=== PATIENT | female | born 1995 | race Caucasian/White ===

== ENCOUNTER 2024-02-29 08:48 | Emergency (ER) | payer OTHER, SELFPAY ==
[2024-02-29 08:54] VITALS: BP 123/72
[2024-02-29 09:49] VITALS: BMI 26.2
--- NOTE | 2024-02-29 10:07 | ED.GENMED ---
History of Present Illness
General
Chief Complaint: Back Pain
Source: patient
Exam Limitations: none
Time Seen by Provider: 02/29/24 09:56
History of Present Illness
History of Present Illness:
29-year-old female presents with several days worth of worsening left flank pain. The pain is made worse with motion and laying flat. She also notes increase with deep breathing. No recent travel or surgery. She denies any leg swelling or calf
pain. No fever or cough. No urinary symptoms. She tried pain medication and muscle relaxer at home without relief.
Past History
Past History
ED Past Medical History: Asthma and Other (migraines, brain tumor)
ED Past Surgical History: Tonsilectomy and Other (Myringotomy tubes, 'brain tumor' removal)
Social History
Tobacco: Non-smoker
Alcohol: Occasional
Drug: None
Personal: Single
Living: with family
Employment: Student
Family History
Family History: Negative Early CAD
Phy Exam
Physical Exam
Physical Exam:
General: Well-appearing female no acute respiratory distress
HEENT: Normocephalic atraumatic
Heart: Regular rate and rhythm no murmurs lungs: Clear no wheeze
Abdomen: Soft tender to the left flank and lower left posterior lateral chest. No step-off or deformity. No rash. No overlying ecchymosis slight tenderness to the lower left abdomen as well
Extremities: No cyanosis or edema
Course
Orders/Labs/Results
Orders:
Orders
02/29/24 10:00
UA Reflex to Culture [Urinalysis Reflex To Culture] Urgent
Date Specimen was Collected: 02/29/24
Time Specimen was Collected: 09:57
Urine Microscopic Reflex Cult Urgent
Urine Culture Urgent
FRACISCO Source: U
Specimen Description:
Date Specimen was Collected: 02/29/24
Time Specimen was Collected: 09:57
02/29/24 10:04
Ketorolac [Toradol] 15 mg IV NOW STA
02/29/24 10:08
Test Result ONCE
02/29/24 10:19
Complete Blood Count/With Diff Urgent
Comprehensive Metabolic Panel Urgent
HCG, Serum Qualitative Screen Urgent
Lipase Urgent
02/29/24 10:56
D-Dimer Urgent
02/29/24 11:22
diazePAM [Valium Injection] 5 mg IV NOW STA
02/29/24 11:38
CT Abd/pel Without Iv Or Oral Urgent
Comment:
Reason For Exam: left flank pain
Abnormal Lab Results
02/29/24 02/29/24
10:00 10:19
Absolute Neuts (auto) 7.3 H 10^3/uL
(1.4-6.5)
Absolute Monos (auto) 1.1 H 10^3/uL
(0.1-0.6)
Lymphocytes % 15.6 L %
(20.5-51.1)
Monocytes % 10.7 H %
(1.7-9.3)
Glucose 103 H mg/dl
(70-99)
Total Bilirubin 1.8 H mg/dl
(0.2-1.3)
Urine Bilirubin 1+ A
(Negative)
Leukocyte Esterase Rfl Trace A
(Negative)
Urine Bacteria (Reflex) Moderate A
(Negative)
02/29/24 10:19
02/29/24 10:19
Vital Signs
Initial and Last Documented VS:
Initial Vital Signs
Temp Pulse Resp BP Pulse Ox
98.3 F 89 18 123/72 97
02/29/24 08:54 02/29/24 08:54 02/29/24 08:54 02/29/24 08:54 02/29/24 08:54
Last Documented Vital Signs
Temp Pulse Resp BP Pulse Ox
98.3 F 70 18 102/58 100
02/29/24 08:54 02/29/24 12:00 02/29/24 12:00 02/29/24 12:00 02/29/24 12:00
MDM/Problems Addressed
Differential Diagnosis Includes:
Left flank pain for injury could include musculoskeletal flank pain versus PE versus renal colic constipation
Check urine. Labs pending including D-dimer.
*Critical Care Note
Total Time (30-74mins, 75-104mins- exclusive of procedures): Not Applicable
Update Note
Update Note:
D-dimer undetectable. Urinalysis with bacteria but large amount of squamous cells suspect contaminated specimen. Nose significant urinary symptoms. Will hold off on treatment for UTI. CT was performed of the abdomen which demonstrates a large
amount of stool throughout the colon to suggest constipation. Patient received some relief with muscle relaxants here. Differential still includes constipation versus muscular flank pain. Recommended muscle relaxers at home and stool softeners.
Stable for discharge
ED Attending Note
-
Portions of this chart may have been created with voice recognition software.� Occasional wrong word or��sound alike� substitutions may have occurred due to the inherent limitations of voice recognition software.
Discharge Plan
Departure
Patient Disposition: Home (Routine Discharge)
Date of Disposition: 02/29/24
Time of Disposition: 13:43
Patient with high blood pressure during this ER visit?: No
Discharge Problem:
Acute flank pain, Constipation
Instructions: Constipation, Adult ED
Prescriptions:
New
cyclobenzaprine 10 mg tablet
10 mg PO TID PRN (Reason: spasm) Qty: 10 0RF
No Action
Control
1 tab PO DAILY
oxycodone-acetaminophen 5 MG/325 MG tablet
1 tab PO Q4HPRN PRN (Reason: pain) Qty: 8 0RF
naproxen sodium [Aleve] 220 MG tablet
220 mg PO PRN PRN (Reason: pain)
prednisone 50 MG tablet
50 mg PO DAILY Qty: 5 0RF
albuterol sulfate [Proventil HFA] 90 MCG/PUFF HFA aerosol inhaler
2 puff inhalation Q4HPRN PRN (Reason: shortness of breath, wheezing) Qty: 1 0RF
omeprazole magnesium [Prilosec OTC] 20 MG tablet,delayed release (DR/EC)
20 mg PO DAILY Qty: 20 0RF
amoxicillin-pot clavulanate 1 TABLET tablet
1 tab PO Q12 Qty: 10 0RF
prednisone 20 mg tablet
40 mg PO DAILY Qty: 10 0RF
Referrals:
Abdullahi Fuchs MD [Family Provider] -
Stand Alone Forms: Return to Work
Activity Restrictions/Additional Instructions:
Use MiraLAX or stool softeners. Use muscle relaxer if needed for spasms. Continue with warm compresses to the left side. Return if worse otherwise follow-up with your doctor
Interventions
Interventions:
*Risk Screen - Suicide Last Done: 02/29/24 11:15
*General Assessment Last Done: 02/29/24 11:15
*Neglect/Abuse Screening Last Done: 02/29/24 11:15
ED- Fall Risk Assessment Last Done: 02/29/24 11:15
*ED COVID-19 Vaccine History Last Done: 02/29/24 11:15
ED-Musculoskeletal Assessment Last Done: 02/29/24 11:15
Discharge Date and Time
Print Language: MOLDOVAN
[2024-02-29 10:16] LABS: Urine Albumin Trace (Neg - Trace); Urine Bilirubin 1+ (Negative); Urine Character Slightly Cloudy (Clear); Urine Color Yellow; Urine Glucose Negative (Negative); Urine Ketone Negative (Negative); Urine Leukocyte Trace (Negative); Urine Nitrite Negative (Negative); Urine Occult Blood Negative (Negative); Urine Specific Gravity 1.025 (<1.030); Urine Urobilinogen Negative (Neg - 1+)
[2024-02-29] MEDS: TORADOL 15 MG IV (10:16)
[2024-02-29 10:42] LABS: Urine Squamous Cell >30 /LPF (Few)
[2024-02-29 10:43] LABS: Urine Red Blood Cell None Seen /HPF (0-2)
[2024-02-29 10:44] LABS: Urine Bacteria Moderate (Negative)
[2024-02-29 10:44] LABS: ALT (SGPT) 16 U/L (0-35); AST (SGOT) 18 U/L (14-36); Albumin 4.5 g/dl (3.5-5.0); Alkaline Phosphatase 86 U/L (38-126); Blood Urea Nitrogen 13 mg/dl (7-17); Calcium 9.7 mg/dl (8.4-10.2); Carbon Dioxide 24 mmol/L (22-30); Chloride 105 mmol/L (98-107); Estimated Creatinine Clearance 93 ml/min; Glucose 103 mg/dl (70-99); Lipase 121 U/L (23-300); Potassium 4.3 mmol/L (3.5-5.1); Sodium 141 mmol/L (135-145); Total Bilirubin 1.8 mg/dl (0.2-1.3); eGFR > 60.00
[2024-02-29 10:50] LABS: % Basophils 0.4 % (0-2); % Immature Granulocytes 0.4 % (0-0.5); % Lymphocytes 15.6 % (20.5-51.1); % Monocytes 10.7 % (1.7-9.3); % Neutrophils 71.9 % (42.2-75.2); Absolute Eosinophils 0.1 10^3/uL (0-0.7); Absolute Lymphocytes 1.6 10^3/uL (1.2-3.4); Absolute Monocytes 1.1 10^3/uL (0.1-0.6); Absolute Neutrophils 7.3 10^3/uL (1.4-6.5); Hematocrit 41.6 % (37.0-47.0); Hemoglobin 14.3 g/dL (12.0-16.0); Mean Corp Hgb Conc. 34.4 g/dL (33.0-37.0); Mean Corpuscular Hgb 29.5 pg (27.0-31.0); Mean Platelet Volume 10.2 fL (7.4-10.4); Nucleated Red Blood Cells % 0 %; Platelet Count 249 10^3/uL (130-400); Red Blood Cell Count 4.84 10^6/uL (4.20-5.40); Red Cell Dist. Width 12.1 % (11.5-14.5); White Blood Cell Count 10.1 10^3/uL (4.8-10.8)
[2024-02-29 10:51] LABS: HCG, Serum Qualitative Screen Negative
[2024-02-29 11:23] LABS: D-Dimer < 0.27 ug/mlFEU (0.00-0.50)
[2024-02-29] MEDS: VALIUM INJECTION 5 MG IV (11:35)
[2024-02-29 12:00] VITALS: BP 102/58
== END 2024-02-29 14:07 | disposition home or self-care (01) ==
LOC: EMR 08:48
PROVIDERS: Physician Assistant; EMERGENCY PHYSICIAN Emergency Medicine; FAMILY PHYSICIAN Family Medicine
DX: K59.00 Constipation, unspecified (principal); J45.909 Unspecified asthma, uncomplicated
CPT/HCPCS: 96374; 96375; 99284; 74176; 80053; 81003; 81015; 83690; 84703; 85025; 85379; 87086